=== PATIENT | male | born 1935 | race Caucasian/White ===

== ENCOUNTER 2017-12-05 11:00 | Inpatient (IN) | payer BC, OTHER ==
--- NOTE | 2017-12-05 11:28 | PDOC ---
History of Present Illness - General Chief Complaint: Chest Pain Stated Complaint: CHEST PAIN Time Seen by Provider: 12/05/17 11:23 - History of Present Illness Initial Comments: I did not see this patient This patient was seen by Dr Proctor Past History - Past Medical History Allergies/Adverse Reactions: Allergies Allergy/AdvReac Type Severity Reaction Status Date / Time No Known Allergies Allergy Verified 12/05/17 11:08 Home Medications: Ambulatory Orders Amlodipine Besylate [Norvasc -] 2.5 mg PO DAILY 12/05/17 Aspirin 81 mg PO DAILY 12/05/17 Ergocalciferol (Vitamin D2) [Vitamin D2] 50,000 unit PO DAILY 12/05/17 Folic Acid/Vit B Complex and C [Natalie-Maxine Tablet] 0.8 mg PO DAILY 12/05/17 Furosemide 20 mg PO DAILY 12/05/17 Losartan Potassium 50 mg PO DAILY 12/05/17 Metoprolol Succinate 25 mg PO DAILY 12/05/17 Pravastatin Sodium [Pravachol] 40 mg PO DAILY 12/05/17 Tamsulosin HCl 0.4 mg PO DAILY 12/05/17 Cardiac Disorders: Yes (PACEMAKER) COPD: No DVT: No Diabetes: Yes (IDDM) GI Disorders: Yes (BPH) HTN: Yes Hypercholesterolemia: Yes - Surgical History Cardiac Surgery: Yes (PACEMAKER) - Immunization History Immunization Up to Date: Yes - Suicide/Smoking/Psychosocial Hx Smoking History: Never smoked Have you smoked in the past 12 months: No Information on smoking cessation initiated: No Hx Alcohol Use: No Drug/Substance Use Hx: No Substance Use Type: None *Physical Exam - Vital Signs Last Vital Signs Temp Pulse Resp BP Pulse Ox 98.6 F 80 18 133/65 100 12/05/17 11:08 12/05/17 11:08 12/05/17 11:08 12/05/17 11:08 12/05/17 11:08 ED Treatment Course - LABORATORY CBC & Chemistry Diagram: 12/06/17 05:20 12/08/17 05:40 *DC/Admit/Observation/Transfer Diagnosis at time of Disposition: Influenza A, Presence of cardiac pacemaker, Chronic kidney disease - Discharge Dispostion Condition at time of disposition: Stable - Referrals - Patient Instructions - Post Discharge Activity
--- NOTE | 2017-12-05 11:39 | PDOC ---
History of Present Illness <Julieta Barr - Last Filed: 12/05/17 13:10> - History of Present Illness Initial Comments: 82 year male HTN and CHF (s/p pacemaker and mitral valve replacement) presenting with cough, fevers, chest pain, and nasal congestion over the past day. Patient admits to multiple sick contacts over the past few days including flu positive contacts. Describes his chest pain as an 8/10 sharp pain that presented yesterday evening and remitted after 30 minutes to an hour. The pain radiated to his right shoulder. He also had some shortness of breath and cough with a fever to 101 at home. Denies nausea, vomiting, diarrhea, constipation, productive cough, headache, weakness, or other sick symptoms. 12/05/17 14:49 <Ammy Brown - Last Filed: 12/07/17 07:35> - General Chief Complaint: Chest Pain Stated Complaint: CHEST PAIN Time Seen by Provider: 12/05/17 11:23 Past History <Julieta Barr - Last Filed: 12/05/17 13:10> - Past Medical History Cardiac Disorders: Yes (PACEMAKER) COPD: No DVT: No Diabetes: Yes (IDDM) GI Disorders: Yes (BPH) HTN: Yes Hypercholesterolemia: Yes - Surgical History Cardiac Surgery: Yes (PACEMAKER) - Immunization History Immunization Up to Date: Yes - Suicide/Smoking/Psychosocial Hx Smoking History: Never smoked Have you smoked in the past 12 months: No Information on smoking cessation initiated: No Hx Alcohol Use: No Drug/Substance Use Hx: No Substance Use Type: None <Ammy Brown - Last Filed: 12/07/17 07:35> - Past Medical History Allergies/Adverse Reactions: Allergies Allergy/AdvReac Type Severity Reaction Status Date / Time No Known Allergies Allergy Verified 12/05/17 11:08 Home Medications: Ambulatory Orders Amlodipine Besylate [Norvasc -] 2.5 mg PO DAILY 12/05/17 Aspirin 81 mg PO DAILY 12/05/17 Ergocalciferol (Vitamin D2) [Vitamin D2] 50,000 unit PO DAILY 12/05/17 Folic Acid/Vit B Complex and C [Natalie-Maxine Tablet] 0.8 mg PO DAILY 12/05/17 Furosemide 20 mg PO DAILY 12/05/17 Losartan Potassium 50 mg PO DAILY 12/05/17 Metoprolol Succinate 25 mg PO DAILY 12/05/17 Pravastatin Sodium [Pravachol] 40 mg PO DAILY 12/05/17 Tamsulosin HCl 0.4 mg PO DAILY 12/05/17 Review of Systems - Review of Systems Constitutional: Yes: Fever. No: Chills, Diaphoresis, Loss of Appetite HEENTM: No: Blurred Vision, Tearing Respiratory: Yes: Cough, Shortness of Breath Cardiac (ROS): Yes: Chest Pain. No: Edema, Irregular Heart Rate, Chest Tightness ABD/GI: No: Constipated, Diarrhea, Nausea, Vomiting : No: Dysuria, Discharge, Frequency Musculoskeletal: No: Back Pain, Joint Pain Integumentary: No: Change in Color, Flushing, Lesions, Rash Neurological: No: Headache, Numbness, Paresthesia, Tingling, Tremors, Weakness <Ammy Brown - Last Filed: 12/07/17 07:35> *Physical Exam - Vital Signs Last Vital Signs Temp Pulse Resp BP Pulse Ox 101.2 F H 70 16 102/62 98 12/05/17 12:18 12/05/17 12:10 12/05/17 12:10 12/05/17 12:10 12/05/17 12:10 <Julieta Barr - Last Filed: 12/05/17 13:10> - Vital Signs Last Vital Signs Temp Pulse Resp BP Pulse Ox 98.6 F 80 18 133/65 100 12/05/17 11:08 12/05/17 11:08 12/05/17 11:08 12/05/17 11:08 12/05/17 11:08 - Physical Exam General Appearance: Yes: Nourished, Appropriately Dressed. No: Apparent Distress HEENT: positive: EOMI, KALA, Nasal Congestion. negative: Normal ENT Inspection Neck: positive: Trachea midline, Normal Thyroid, Supple. negative: Tender, Rigid Respiratory/Chest: positive: Lungs Clear, Normal Breath Sounds. negative: Chest Tender, Respiratory Distress, Accessory Muscle Use Cardiovascular: positive: Regular Rhythm, Regular Rate Gastrointestinal/Abdominal: positive: Normal Bowel Sounds, Flat, Soft. negative : Tender Lymphatic: positive: Adenopathy (cervical adenopathy). negative: Tenderness Musculoskeletal: positive: Normal Inspection. negative: CVA Tenderness Extremity: positive: Normal Capillary Refill, Normal Inspection, Normal Range of Motion Integumentary: positive: Normal Color, Dry, Warm Neurologic: positive: train starter II-XII NML intact, Fully Oriented, Alert, Normal Mood/ Affect, Motor Strength 5/5 <Ammy Brown - Last Filed: 12/07/17 07:35> ED Treatment Course - LABORATORY CBC & Chemistry Diagram: 12/05/17 11:46 12/05/17 11:46 - ADDITIONAL ORDERS Additional order review: Laboratory Results 12/05/17 11:52 Urine Color Yellow Urine Appearance Slcloudy Urine pH 5.0 Ur Specific [place] 1.012 Urine Protein 2+ H Urine Glucose (UA) 1+ H Urine Ketones Negative Urine Blood 3+ H Urine Nitrite Negative Urine Bilirubin Negative Urine Urobilinogen Negative Ur Leukocyte Esterase Negative Urine WBC (Auto) 1 Urine RBC (Auto) 13 Hyaline Casts 1 Urine Mucus Rare 12/05/17 11:46 RBC 4.35 MCV 92.2 MCHC 34.0 RDW 13.5 MPV 9.6 Neutrophils % 70.0 Lymphocytes % 15.5 Monocytes % 12.1 H Eosinophils % 1.3 Basophils % 1.1 - RADIOLOGY Radiograph Interpretation: 12/05/17 13:11 Chest X-ray Impression: Valve replacement. Prominent mediastinum. Pacemaker. No acute chest pathology. No comparison studies. Reported By: Alan Self MD 12/05/17 6800 - Medications Given in the ED: ED Medications Discontinued Medications Generic Name Dose Route Start Last Admin Trade Name Freq PRN Reason Stop Dose Admin Acetaminophen 325 mg 12/05/17 12:28 12/05/17 12:28 Tylenol - PO 12/05/17 12:29 325 mg NOW ONE Administration Aspirin 324 mg 12/05/17 12:03 12/05/17 12:05 Asa - PO 12/05/17 12:04 324 mg ONCE ONE Administration Sodium Chloride 1,000 ml 12/05/17 11:44 12/05/17 12:04 Normal Saline - IV 12/05/17 11:45 Not Given ONCE ONE <Julieta Barr - Last Filed: 12/05/17 13:10> - LABORATORY CBC & Chemistry Diagram: 12/06/17 05:20 12/06/17 05:20 <Ammy Brown - Last Filed: 12/07/17 07:35> Medical Decision Making - Medical Decision Making 82 year old male with cardiac history (s/p pacemaker) and CKD presenting with chest paina dn uri like symptoms with positive flu contacts. Currently not having chest pain amd EKG demonstrating predominantly paced rhythm, QTc 472, QRS 104, Rate 89, with ST wave changes that are non-specific in this setting. Previous EKG was non-paced rhythm. Patient is Flu A positive with continued evidence of CKD and positive Troponin. Spoke to Dr. Charles multiple times and he is not concerned about this being an acute ischemic event. Bedside Echo demonstrated some decreased contractility. Will admit patient for further cardiac workup with Dr. Aguiar as the consult. 12/07/17 07:25 <Ammy Brown - Last Filed: 12/07/17 07:35> *DC/Admit/Observation/Transfer <Julieta Barr - Last Filed: 12/05/17 13:10> - Discharge Dispostion Admit: Yes <Ammy Brown - Last Filed: 12/07/17 07:35> Diagnosis at time of Disposition: Influenza A, Presence of cardiac pacemaker Chronic kidney disease Qualifiers: Chronic kidney disease stage: stage 3 (moderate) Qualified Code(s): N18.3 - Chronic kidney disease, stage 3 (moderate) - Discharge Dispostion Condition at time of disposition: Stable
[2017-12-05] MEDS ORDERED: SODIUM CHLORIDE 0.9% 1000 ML INFUS.BAG IV ONE (11:44)
[2017-12-05] MEDS ORDERED: ASPIRIN 81 MG CHEWABLE TABLETS PO ONE (12:03)
[2017-12-05] MEDS ORDERED: ASPIRIN 325 MG TABLET ONE (12:05)
[2017-12-05] MEDS ORDERED: ACETAMINOPHEN 325 MG TABLET (FP) ONE (12:22)
[2017-12-05] MEDS ORDERED: ACETAMINOPHEN 325 MG TABLET (FP) PO ONE (12:28)
[2017-12-05 12:37] LABS: BASO % 1.1 % (0-2.0); EOS % 1.3 % (0-4.5); HEMATOCRIT 40.1 % (35.4-49); HEMOGLOBIN 13.6 GM/dL (11.7-16.9); LYMPH % 15.5 % (8-40); MCH 31.4 pg (25.7-33.7); MEAN CELL VOLUME 92.2 fl (80-96); MEAN PLT VOLUME 9.6 fl (7.5-11.1); MONO % 12.1 % (3.8-10.2); PLATELET COUNT 113 K/MM3 (134-434); RBC 4.35 M/mm3 (4.00-5.60); RDW 13.5 % (11.9-15.9); WHITE BLOOD COUNT 7.6 K/mm3 (4.0-10.0)
[2017-12-05 12:40] LABS: URINE APPEARANCE SLCLOUDY; URINE BILIRUBIN NEGATIVE (<2.0 mg/dL); URINE BLOOD 3+ (NEGATIVE); URINE COLOR YELLOW; URINE GLUCOSE (UA) 1+ (NEGATIVE); URINE KETONE NEGATIVE (NEGATIVE); URINE LEUK ESTERASE NEGATIVE (NEGATIVE); URINE NITRITE NEGATIVE (NEGATIVE); URINE UROBILINOGEN NEGATIVE mg/dL (0.2-1.0)
[2017-12-05 12:42] LABS: URINE PROTEIN 2+ (NEGATIVE)
[2017-12-05 12:56] LABS: URINE HYALINE CAST 1 /lpf; URINE MUCUS RARE
[2017-12-05 13:13] LABS: ALBUMIN 3.9 g/dl (3.4-5.0); ANION GAP 6 (8-16); BILIRUBIN,TOTAL 0.9 mg/dL (0.2-1.0); BLOOD UREA NITROGEN 42 mg/dL (7-18); CALCIUM 8.1 mg/dL (8.5-10.1); CHLORIDE 107 mmol/L (98-107); CO2 26 mmol/L (21-32); CREATININE 2.5 mg/dL (0.7-1.3); GLUCOSE,RANDOM 230 mg/dL (74-106); POTASSIUM 4.1 mmol/L (3.5-5.1); SGOT/AST 31 U/L (15-37); SGPT/ALT 30 U/L (12-78); SODIUM 139 mmol/L (136-145); TOT PROT 7.6 g/dl (6.4-8.2)
[2017-12-05 13:16] LABS: ALK PHOS 56 U/L (45-117)
--- NOTE | 2017-12-05 13:17 | PDOC ---
Attending Attestation - HPI HPI: 12/05/17 13:22 Patient is a 82 M, with PMHx of IDDM, CKD,has pacemaker who presents with chest pain and flu-like symptoms since last night. Patient reports a fever of 103F at home, he reports coughing (scant with sputum production) and states a 2 of his family members are sick with flu-like symptoms. He states that his chest pain began last night but it is resolving today. He denies recent travel, leg swelling, rash, nausea, or vomiting. - Physicial Exam PE: 12/05/17 13:22 GENERAL: Awake, alert, and fully oriented, in no acute distress HEAD: No signs of trauma EYES: PERRLA, EOMI, sclera anicteric, conjunctiva clear ENT: Auricles normal inspection, nares patent, Moist mucosa NECK: Normal ROM, supple, no lymphadenopathy, JVD, or masses LUNGS: Breath sounds equal, clear to auscultation bilaterally. No wheezes, and no crackles HEART: Regular rate and rhythm, normal S1 and S2, no murmurs, rubs or gallops ABDOMEN: Soft, nontender, normoactive bowel sounds. No guarding, no rebound. No masses EXTREMITIES: Normal range of motion, no edema. No clubbing or cyanosis. No cords, erythema, or tenderness NEUROLOGICAL: Normal speech, gait is normal SKIN: Warm, Dry, normal turgor, no rashes or lesions noted. <Julieta Barr - Last Filed: 12/05/17 13:22> - Resident Resident Name: Ammy Brown - ED Attending Attestation I have performed the following: I have examined & evaluated the patient, The case was reviewed & discussed with the resident, I agree w/resident's findings & plan, Exceptions are as noted - Medical Decision Making 12/05/17 13:15 82 yo M h/o DM CKD HTN here with chest pain, fever and cough. chest pain resolved. differential: influenza, pna, uti, viral uri, acs. plan ekg labs cxr flu swab. EKG with changes , paced, TWI I, AVL, II III and AVF however old ekg is unpaced so no comparison. cxr unreamrakble, pacer no infiltrate. 12/05/17 14:58 pt with cxr unremarkable. sclerotic aorta, valve replacement post surgical changes. trop positive 0.115, flu positive. plan bedside echo r/o pericardial effusion, or abnoramity assoc poss myocarditis. d/w Dr Lombardo ( covering for [facility]) juve admit pt to tele. 12/05/17 17:53 focused ED ultrasound TTE indication: flu, positive trop r/o mycardial dysfunction, pericardial effusion four views obtained ( parasternal long and short, apicl and subxiphoid) no pericardial effusion noted. left atrial enlargement. mild decreased contractility, mild irregularity at septal wall. impression: no pericardial effusion, overall mild decr contractility. <Ilana Gonzalez - Last Filed: 12/05/17 17:54>
[2017-12-05] MEDS ORDERED: OSELTAMIVIR PHOSPHATE 30 MG CAPSULE PO ONE (15:53)
--- NOTE | 2017-12-05 19:17 | CON.CARD ---
Consult Consult Specialty:: Cardiology Referred by:: Chiara Tom MD Reason for Consultation:: Demand ischemia - History of Present Illness Chief Complaint: Cough History of Present Illness: Coverage for Dr. Aguiar Patient is a 82 M, with PMHx of IDDM, CKD, pacemaker presented with post- tussive chest pain and flu-like symptoms since last night. Patient reports a fever of 103F at home, he reports coughing (scant with sputum production) and states a 2 of his family members are sick with flu-like symptoms. He denies dyspnea, palpitations, near or true syncope, orthopnea, PND or LE edema. - History Source History Provided By: Patient Limitations to Obtaining History: No Limitations - Alcohol/Substance Use Hx Alcohol Use: No - Smoking History Smoking history: Never smoked Have you smoked in the past 12 months: No Home Medications - Allergies Allergies/Adverse Reactions: Allergies Allergy/AdvReac Type Severity Reaction Status Date / Time No Known Allergies Allergy Verified 12/05/17 11:08 - Home Medications Home Medications: Ambulatory Orders Amlodipine Besylate [Norvasc -] 2.5 mg PO DAILY 12/05/17 Aspirin 81 mg PO DAILY 12/05/17 Ergocalciferol (Vitamin D2) [Vitamin D2] 50,000 unit PO DAILY 12/05/17 Folic Acid/Vit B Complex and C [Natalie-Maxine Tablet] 0.8 mg PO DAILY 12/05/17 Furosemide 20 mg PO DAILY 12/05/17 Losartan Potassium 50 mg PO DAILY 12/05/17 Metoprolol Succinate 25 mg PO DAILY 12/05/17 Pravastatin Sodium [Pravachol] 40 mg PO DAILY 12/05/17 Tamsulosin HCl 0.4 mg PO DAILY 12/05/17 Review of Systems - Review of Systems Constitutional: reports: Fever Cardiovascular: reports: Chest Pain Respiratory: reports: Cough Vital Signs: Vital Signs Temperature 99.4 F 12/05/17 18:00 Pulse Rate 72 12/05/17 18:00 Respiratory Rate 25 H 12/05/17 18:00 Blood Pressure 129/52 12/05/17 18:00 O2 Sat by Pulse Oximetry (%) 98 12/05/17 16:21 Constitutional: Yes: No Distress, Calm Neck: Yes: Supple Respiratory: Yes: Regular, Diminished, On Nasal O2 Gastrointestinal: Yes: Normal Bowel Sounds, Soft, Abdomen, Obese Cardiovascular: Yes: Regular Rate and Rhythm JVD: No Carotid Bruit: No Heart Sounds: Yes: S1, S2 Murmur: Yes: Systolic Murmur, Grade 1 Edema: No - Other Data Labs, Other Data: CBC, BMP 12/05/17 11:46 12/05/17 11:46 Troponin, BNP 12/05/17 11:46 Troponin I 0.15 H Troponin, BNP 12/05/17 11:46 Troponin I 0.15 H A-V paced @ 75 Imaging - Results Chest X-ray: Report Reviewed (Pacer, NAD) Problem List - Problems (1) Influenza A Code(s): J10.1 - FLU DUE TO OTH IDENT INFLUENZA VIRUS W OTH RESP MANIFEST (2) Presence of cardiac pacemaker Code(s): Z95.0 - PRESENCE OF CARDIAC PACEMAKER (3) Demand ischemia Code(s): I24.8 - OTHER FORMS OF ACUTE ISCHEMIC HEART DISEASE (4) Chronic kidney disease Code(s): N18.9 - CHRONIC KIDNEY DISEASE, UNSPECIFIED Qualifiers: Chronic kidney disease stage: stage 3 (moderate) Qualified Code(s): N18.3 - Chronic kidney disease, stage 3 (moderate) (5) Hyperlipidemia Code(s): E78.5 - HYPERLIPIDEMIA, UNSPECIFIED Qualifiers: Hyperlipidemia type: pure hypercholesterolemia Qualified Code(s): E78.00 - Pure hypercholesterolemia, unspecified; E78.0 - Pure hypercholesterolemia (6) Hypertensive cardiomyopathy Code(s): I11.9 - HYPERTENSIVE HEART DISEASE WITHOUT HEART FAILURE; I43 - CARDIOMYOPATHY IN DISEASES CLASSIFIED ELSEWHERE Qualifiers: Heart failure presence: without heart failure Qualified Code(s): I11.9 - Hypertensive heart disease without heart failure; I43 - Cardiomyopathy in diseases classified elsewhere; I43 - Cardiomyopathy in diseases classified elsewhere; I43 - Cardiomyopathy in diseases classified elsewhere; I43 - Cardiomyopathy in diseases classified elsewhere Assessment/Plan 1. Influenza A 2. Atypical post-tussive chest discomfort 3. Demand ischemia 4. Type 2 DM 5, HTN/HCVD 6. CKD 7. Hyperlipidemia 8. Diastolic dysfunction P:1. Trend troponins to document peak 2. Complete tamiflu course, isolation 3. Echocardiogram to assess ventricular and valve fxn 4. Continue Norvasc 2.5 qd, ASA 81 qd, Losartan 50 qd, Toprol XL 25 qd, Pravachol 40 qd. Hold Lasix for now. 5. Thank you for consultative opportunity
[2017-12-05] MEDS: ATORVASTATIN CA 20 MG TABLET (FP) PO SCH (21:54)
[2017-12-06 05:49] LABS: BASO % 0.8 % (0-2.0); EOS % 1.4 % (0-4.5); HEMATOCRIT 37.9 % (35.4-49); HEMOGLOBIN 13.2 GM/dL (11.7-16.9); LYMPH % 20.7 % (8-40); MCH 32.4 pg (25.7-33.7); MCHC 34.8 g/dl (32.0-35.9); MEAN CELL VOLUME 93.1 fl (80-96); MEAN PLT VOLUME 9.9 fl (7.5-11.1); MONO % 17.3 % (3.8-10.2); NEUT % 59.8 % (42.8-82.8); PLATELET COUNT 100 K/MM3 (134-434); RBC 4.07 M/mm3 (4.00-5.60); RDW 13.7 % (11.9-15.9); WHITE BLOOD COUNT 6.6 K/mm3 (4.0-10.0)
[2017-12-06 06:12] LABS: ALBUMIN 3.6 g/dl (3.4-5.0); ANION GAP 4 (8-16); BILIRUBIN,TOTAL 0.9 mg/dL (0.2-1.0); BLOOD UREA NITROGEN 46 mg/dL (7-18); CALCIUM 7.8 mg/dL (8.5-10.1); CHLORIDE 106 mmol/L (98-107); CO2 28 mmol/L (21-32); CREATININE 2.3 mg/dL (0.7-1.3); GLUCOSE,RANDOM 201 mg/dL (74-106); POTASSIUM 4.4 mmol/L (3.5-5.1); SGOT/AST 31 U/L (15-37); SGPT/ALT 25 U/L (12-78); SODIUM 138 mmol/L (136-145)
[2017-12-06 06:15] LABS: ALK PHOS 48 U/L (45-117)
[2017-12-06] MEDS ORDERED: PT OWN MED DRAWER 7, Y5N ONE ×2 (09:37→21:06)
[2017-12-06] MEDS: metoPROLOL SUCCINATE 25 MG TAB.SR.24H (FP) PO SCH (09:52)
[2017-12-06] MEDS: ASPIRIN 81 MG CHEWABLE TABLETS PO SCH (09:53)
[2017-12-06] MEDS: LOSARTAN POTASSIUM 50 MG TABLET (FP) PO SCH (09:53)
[2017-12-06] MEDS: HEPARIN NA (PORCINE) 5,000 UNITS/ML 1ML VIAL SQ SCH ×2 (09:54→22:01)
[2017-12-06] MEDS: OSELTAMIVIR PHOSPHATE 30 MG CAPSULE PO SCH ×2 (09:54→22:01)
--- NOTE | 2017-12-06 10:44 | EKG ---
Test Reason : Blood Pressure : / mmHG Vent. Rate : 089 BPM Atrial Rate : 089 BPM P-R Int : 000 ms QRS Dur : 104 ms QT Int : 388 ms P-R-T Axes : 000 -25 223 degrees QTc Int : 472 ms SINUS RHYTHM WITH MARKED SINUS ARRHYTHMIA WITH FREQUENT ventricular-paced complexes PROLONGED QT ABNORMAL ECG WHEN COMPARED WITH ECG OF 21-JAN-2003 09:27, ELECTRONIC VENTRICULAR PACEMAKER HAS REPLACED SINUS RHYTHM Confirmed by BETH MEHTA, KRIS ([id number]) on 12/06/2017 10:43:50 AM Referred By: Confirmed By:KRIS CAMPOS MD
--- NOTE | 2017-12-06 12:23 | PN ---
Progress Note (short form) - Note Progress Note: RENAL Spoke to patient. He sees Dr Good. Will call consult. MV
--- NOTE | 2017-12-06 13:13 | CON.ID ---
Consult - History of Present Illness History of Present Illness: Asked to evaluate this 82 y.o. male with PMH of CHF s/p PPM and MV replacement, IDDM, BPH, HLD, HTN, CKD presenting with c/o of non-productive cough with associated chest pain and fever > 102 that began 1 day [employer]. He states that both his brother and his sister had similar symptoms in the past week and were started on treatment for the flu. Pt denied sore throat, h/a, abd pain/n/v/d, dysuria. In the ER noted to have fever 101.2F, currently afebrile. Nasal swab + Influenza A. States he is feeling a bit better. 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: No: Alzheimer's, CVA, Dementia, Migraine, Multiple Sclerosis, Peripheral Neuropathy, Parkinson's, Seizure, Syncope, TIA, Vertigo, Other Cardio/Vascular: Yes: CHF Pulmonary: No: Asthma, Bronchitis, Cancer, COPD, O2 Dependent, Pneumonia, Previously Intubated, Pulmonary Embolus, Pulmonary Fibrosis, Sleep Apnea, Other Gastrointestinal: No: Ascites, Cancer, Constipation, Crohn's Disease, Diverticulitis, Diverticulosis, Esophageal Varices, Gastritis, GERD, GI Bleed, Hemorrhoids, Hiatal Hernia, Inflamatory Bowel Disease, Irritable Bowel Disease, Pancreatitis, Peptic Ulcer Disease, Ulcerative Colitis, Other Hepatobiliary: No: Cirrhosis, Cholelithiasis, Cholecystitis, Choledocholithiasis , Hepatitis A, Hepatitis B, Hepatitis C, Other Renal/: Yes: Renal Failure, BPH Infectious Disease: No: AIDS, C-Diff, Herpes Zoster, HIV, MRSA, STD's, Tuberculosis, VREF, Other Psych: No: Addictions, Anxiety, Bipolar, Depression, Panic, Psychosis, Schizophrenia, Other Musculoskeletal: No: Bursitis, Chronic low back pain, Hemiparesis, Hemiplegia, Osteoarthritis, Paraplegia, Other Rheumatology: No: Fibromyalgia, Gout, Lupus, Rheumatoid Arthritis, Sarcoidosis, Vasculitis, Other ENT: No: Allergic Rhinitis, Sinusitis, Other Endocrine: Yes: Diabetes Mellitus Dermatology: No: Basal Cell, Cellulitis, Eczema, Melanoma, Psoriasis, Squamous Cell, Other - Past Surgical History Past Surgical History: Yes: Permanent Pacemaker, Valve Replacement - Alcohol/Substance Use Hx Alcohol Use: No - Smoking History Smoking history: Never smoked Have you smoked in the past 12 months: No - Social History Usual Living Arrangement: Other (with family) History of Recent Travel: No Home Medications - Allergies Allergies/Adverse Reactions: Allergies Allergy/AdvReac Type Severity Reaction Status Date / Time No Known Allergies Allergy Verified 12/05/17 11:08 - Home Medications Home Medications: Ambulatory Orders Amlodipine Besylate [Norvasc -] 2.5 mg PO DAILY 12/05/17 Aspirin 81 mg PO DAILY 12/05/17 Ergocalciferol (Vitamin D2) [Vitamin D2] 50,000 unit PO DAILY 12/05/17 Folic Acid/Vit B Complex and C [Natalie-Maxine Tablet] 0.8 mg PO DAILY 12/05/17 Furosemide 20 mg PO DAILY 12/05/17 Losartan Potassium 50 mg PO DAILY 12/05/17 Metoprolol Succinate 25 mg PO DAILY 12/05/17 Pravastatin Sodium [Pravachol] 40 mg PO DAILY 12/05/17 Tamsulosin HCl 0.4 mg PO DAILY 12/05/17 Review of Systems - Review of Systems Constitutional: reports: Chills Eyes: reports: No Symptoms HENT: reports: No Symptoms Neck: reports: No Symptoms Cardiovascular: reports: No Symptoms Respiratory: reports: Cough Gastrointestinal: reports: No Symptoms Genitourinary: reports: No Symptoms Musculoskeletal: reports: No Symptoms Integumentary: reports: No Symptoms Neurological: reports: No Symptoms Endocrine: reports: No Symptoms Physical Exam Vital Signs: Vital Signs Temperature 98 F 12/06/17 12:55 Pulse Rate 88 12/06/17 12:55 Respiratory Rate 18 12/06/17 12:55 Blood Pressure 112/60 12/06/17 12:55 O2 Sat by Pulse Oximetry (%) 96 12/06/17 09:00 Constitutional: Yes: No Distress, Calm Eyes: Yes: Conjunctiva Clear HENT: Yes: Atraumatic Neck: Yes: Supple Cardiovascular: Yes: Regular Rate and Rhythm, Murmur Respiratory: Yes: CTA Bilaterally Gastrointestinal: Yes: Normal Bowel Sounds, Soft Renal/: Yes: WNL Musculoskeletal: Yes: WNL Extremities: Yes: WNL Edema: No Integumentary: Yes: WNL Neurological: Yes: Alert, Oriented Labs: CBC, BMP 12/06/17 05:20 12/06/17 05:20 Microbiology 12/05/17 12:00 Blood - Peripheral Venous Blood Culture - Preliminary NO GROWTH OBTAINED AFTER 24 HOURS, INCUBATION TO CONTINUE FOR 4 DAYS. 12/05/17 11:46 Blood - Peripheral Venous Blood Culture - Preliminary NO GROWTH OBTAINED AFTER 24 HOURS, INCUBATION TO CONTINUE FOR 4 DAYS. 12/05/17 11:46 Urine - Urine Clean Catch Urine Culture - Final NO GROWTH OBTAINED 12/05/17 11:46 Nasopharyngeal Swab Influenza Types A,B Antigen (ALIS) - Final 12/05/17 11:46 Nasopharyngeal Swab - Final Imaging - Results Chest X-ray: Report Reviewed (no acute infiltrates) Problem List - Problems (1) Chronic kidney disease Code(s): N18.9 - CHRONIC KIDNEY DISEASE, UNSPECIFIED Qualifiers: Chronic kidney disease stage: stage 3 (moderate) Qualified Code(s): N18.3 - Chronic kidney disease, stage 3 (moderate) (2) Hyperlipidemia Code(s): E78.5 - HYPERLIPIDEMIA, UNSPECIFIED Qualifiers: Hyperlipidemia type: pure hypercholesterolemia Qualified Code(s): E78.00 - Pure hypercholesterolemia, unspecified; E78.0 - Pure hypercholesterolemia (3) Hypertensive cardiomyopathy Code(s): I11.9 - HYPERTENSIVE HEART DISEASE WITHOUT HEART FAILURE; I43 - CARDIOMYOPATHY IN DISEASES CLASSIFIED ELSEWHERE Qualifiers: Heart failure presence: without heart failure Qualified Code(s): I11.9 - Hypertensive heart disease without heart failure; I43 - Cardiomyopathy in diseases classified elsewhere; I43 - Cardiomyopathy in diseases classified elsewhere; I43 - Cardiomyopathy in diseases classified elsewhere; I43 - Cardiomyopathy in diseases classified elsewhere (4) Influenza A Code(s): J10.1 - FLU DUE TO OTH IDENT INFLUENZA VIRUS W OTH RESP MANIFEST (5) Presence of cardiac pacemaker Code(s): Z95.0 - PRESENCE OF CARDIAC PACEMAKER Assessment/Plan 82 y.o. male with PMH of CHF s/p PPM and MVR, DM, CKD, BPH presenting with c/o fever, cough, chest pain that began 2 days ago with family members currently on treatment for flu-like symptoms Influenza A CHF s/p PPM s/p Valve replacement CKD -- continue Tamiflu , on droplet precautions -- blood cultures no growth -- Cardiology evaluation noted continue monitor vitals Thank you
--- NOTE | 2017-12-06 14:21 | PN ---
Progress Note, Physician History of Present Illness: Coverage for Dr. Aguiar Defervescing with improved post-tussive chest pain, fever curve and flu-like symptoms since last night. - Current Medication List Current Medications: Active Medications Aspirin (Asa -) 81 mg PO DAILY [facility] Last Admin: 12/06/17 09:53 Dose: 81 mg Atorvastatin Calcium (Lipitor -) 20 mg PO HS [facility] Last Admin: 12/05/17 21:54 Dose: 20 mg Heparin Sodium (Porcine) (Heparin -) 5,000 unit SQ BID [facility] Last Admin: 12/06/17 09:54 Dose: 5,000 unit Losartan Potassium (Cozaar -) 50 mg PO DAILY [facility] Last Admin: 12/06/17 09:53 Dose: 50 mg Metoprolol Succinate (Toprol Xl -) 25 mg PO DAILY [facility] Last Admin: 12/06/17 09:52 Dose: 25 mg Oseltamivir Phosphate (Tamiflu -) 30 mg PO BID [facility] Stop: 12/11/17 09:59 Last Admin: 12/06/17 09:54 Dose: 30 mg - Objective Vital Signs: Vital Signs Temperature 98 F 12/06/17 12:55 Pulse Rate 88 12/06/17 12:55 Respiratory Rate 18 12/06/17 12:55 Blood Pressure 112/60 12/06/17 12:55 O2 Sat by Pulse Oximetry (%) 96 12/06/17 09:00 Constitutional: Yes: No Distress, Calm Neck: Yes: Supple Cardiovascular: Yes: Regular Rate and Rhythm Respiratory: Yes: Regular, Diminished Gastrointestinal: Yes: Normal Bowel Sounds, Soft Edema: No Labs: CBC, BMP 12/06/17 05:20 12/06/17 05:20 Problem List - Problems (1) Influenza A Code(s): J10.1 - FLU DUE TO OTH IDENT INFLUENZA VIRUS W OTH RESP MANIFEST (2) Presence of cardiac pacemaker Code(s): Z95.0 - PRESENCE OF CARDIAC PACEMAKER (3) Demand ischemia Code(s): I24.8 - OTHER FORMS OF ACUTE ISCHEMIC HEART DISEASE (4) Chronic kidney disease Code(s): N18.9 - CHRONIC KIDNEY DISEASE, UNSPECIFIED Qualifiers: Chronic kidney disease stage: stage 3 (moderate) Qualified Code(s): N18.3 - Chronic kidney disease, stage 3 (moderate) (5) Hyperlipidemia Code(s): E78.5 - HYPERLIPIDEMIA, UNSPECIFIED Qualifiers: Hyperlipidemia type: pure hypercholesterolemia Qualified Code(s): E78.00 - Pure hypercholesterolemia, unspecified; E78.0 - Pure hypercholesterolemia (6) Hypertensive cardiomyopathy Code(s): I11.9 - HYPERTENSIVE HEART DISEASE WITHOUT HEART FAILURE; I43 - CARDIOMYOPATHY IN DISEASES CLASSIFIED ELSEWHERE Qualifiers: Heart failure presence: without heart failure Qualified Code(s): I11.9 - Hypertensive heart disease without heart failure; I43 - Cardiomyopathy in diseases classified elsewhere; I43 - Cardiomyopathy in diseases classified elsewhere; I43 - Cardiomyopathy in diseases classified elsewhere; I43 - Cardiomyopathy in diseases classified elsewhere Assessment/Plan 1. Influenza A 2. Atypical post-tussive chest discomfort 3. Demand ischemia 4. Type 2 DM 5, HTN/HCVD 6. CKD 7. Hyperlipidemia 8. Diastolic dysfunction P:1. Troponins have plateaued 2. Complete tamiflu course, droplet isolation 3. Echocardiogram to assess ventricular and valve fxn 4. Continue Norvasc 2.5 qd, ASA 81 qd, Losartan 50 qd, Toprol XL 25 qd, Lipitor 20 qd. Hold Lasix for now. 5. DVT prophylaxis
[2017-12-06 14:30] VITALS: BMI 29.3
--- NOTE | 2017-12-06 14:30 | CON.NEP ---
Consult Consult Specialty:: nephrology Referred by:: sasha Reason for Consultation:: azotemia - History of Present Illness Chief Complaint: cough and fever and azotemia History of Present Illness: 82 year old admitted for flu like illness referred fo eval of azotemia was exposed to other family members who are ill with respiratory infections he had cough, fevers "101 or 103F", chest pain "8-10 /10", nasal congestion he has known h/o of chronic kidney disease denies any diarrhea or vomiting no edema s/p- ckd dm htn chf ppm mvr - History Source History Provided By: Patient, Medical Record - Past Medical History [employer]RE[employer] 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: No: Alzheimer's, CVA, Dementia, Migraine, Multiple Sclerosis, Peripheral Neuropathy, Parkinson's, Seizure, Syncope, TIA, Vertigo, Other Cardio/Vascular: Yes: CHF Pulmonary: No: Asthma, Bronchitis, Cancer, COPD, O2 Dependent, Pneumonia, Previously Intubated, Pulmonary Embolus, Pulmonary Fibrosis, Sleep Apnea, Other Gastrointestinal: No: Ascites, Cancer, Constipation, Crohn's Disease, Diverticulitis, Diverticulosis, Esophageal Varices, Gastritis, GERD, GI Bleed, Hemorrhoids, Hiatal Hernia, Inflamatory Bowel Disease, Irritable Bowel Disease, Pancreatitis, Peptic Ulcer Disease, Ulcerative Colitis, Other Hepatobiliary: No: Cirrhosis, Cholelithiasis, Cholecystitis, Choledocholithiasis , Hepatitis A, Hepatitis B, Hepatitis C, Other Renal/: Yes: Renal Failure, BPH Infectious Disease: No: AIDS, C-Diff, Herpes Zoster, HIV, MRSA, STD's, Tuberculosis, VREF, Other Psych: No: Addictions, Anxiety, Bipolar, Depression, Panic, Psychosis, Schizophrenia, Other Musculoskeletal: No: Bursitis, Chronic low back pain, Hemiparesis, Hemiplegia, Osteoarthritis, Paraplegia, Other Rheumatology: No: Fibromyalgia, Gout, Lupus, Rheumatoid Arthritis, Sarcoidosis, Vasculitis, Other ENT: No: Allergic Rhinitis, Sinusitis, Other Endocrine: Yes: Diabetes Mellitus Dermatology: No: Basal Cell, Cellulitis, Eczema, Melanoma, Psoriasis, Squamous Cell, Other - Past Surgical History Past Surgical History: Yes: Permanent Pacemaker, Valve Replacement - Alcohol/Substance Use Hx Alcohol Use: No - Smoking History Smoking history: Never smoked Have you smoked in the past 12 months: No - Social History Usual Living Arrangement: Other (with family) History of Recent Travel: No Home Medications - Allergies Allergies/Adverse Reactions: Allergies Allergy/AdvReac Type Severity Reaction Status Date / Time No Known Allergies Allergy Verified 12/05/17 11:08 - Home Medications Home Medications: Ambulatory Orders Amlodipine Besylate [Norvasc -] 2.5 mg PO DAILY 12/05/17 Aspirin 81 mg PO DAILY 12/05/17 Ergocalciferol (Vitamin D2) [Vitamin D2] 50,000 unit PO DAILY 12/05/17 Folic Acid/Vit B Complex and C [Natalie-Maxine Tablet] 0.8 mg PO DAILY 12/05/17 Furosemide 20 mg PO DAILY 12/05/17 Losartan Potassium 50 mg PO DAILY 12/05/17 Metoprolol Succinate 25 mg PO DAILY 12/05/17 Pravastatin Sodium [Pravachol] 40 mg PO DAILY 12/05/17 Tamsulosin HCl 0.4 mg PO DAILY 12/05/17 Review of Systems - Review of Systems Constitutional: reports: Fever Eyes: reports: No Symptoms HENT: reports: No Symptoms Neck: reports: No Symptoms Cardiovascular: reports: No Symptoms Respiratory: reports: No Symptoms, Cough Gastrointestinal: reports: No Symptoms Genitourinary: reports: No Symptoms Breasts: reports: No Symptoms Reported Musculoskeletal: reports: No Symptoms Integumentary: reports: No Symptoms Neurological: reports: No Symptoms Nephrology Consult - Height Height: 5 ft 3 in - Weight Weight: 165 lb 12.602 oz - BMI Body Mass Index (BMI): 29.3 - Lab Results CBC,BMP: CBC, BMP 12/06/17 05:20 12/06/17 05:20 Anion Gap: Anion Gap Anion Gap 4 (8-16) L 12/06/17 05:20 - Physical Examination Vital Signs: Vital Signs Temperature 98 F 12/06/17 12:55 Pulse Rate 88 12/06/17 12:55 Respiratory Rate 18 12/06/17 12:55 Blood Pressure 112/60 12/06/17 12:55 O2 Sat by Pulse Oximetry (%) 96 12/06/17 09:00 Constitutional: Yes: Well Nourished, No Distress, Calm Eyes: Yes: WNL, Conjunctiva Clear, EOM Intact Neck: Yes: WNL, Supple, Trachea Midline Cardiovascular: Yes: WNL, Regular Rate and Rhythm Respiratory: Yes: WNL, Regular, CTA Bilaterally Gastrointestinal: Yes: WNL, Normal Bowel Sounds Renal/: Yes: WNL Musculoskeletal: Yes: WNL Extremities: Yes: WNL Edema: No Peripheral Pulses WNL: Yes Integumentary: Yes: WNL Neurological: Yes: WNL, Alert, Oriented Psychiatric: Yes: WNL Assessment/Plan ckd with proteinuria unclear if theres an acute component no evidence w/u in this hosp may be known to dr joyce/kaoyde risk factors for kidney disease include ascvd/htn/dm/chf admitted for flu-like illness Plan- routine w/u ordered renal sono urine follow bmp
--- NOTE | 2017-12-06 17:48 | HP ---
Admitting History and Physical - Admission History of Present Illness: Pt is a 82 y/o male w/ PMH significant for HTN, HLD, CKD, BPH and ?diabetes. Pt presented to the ER bc of 1-2 day h/o URI symptoms wc included cough w/ productive greenish sputum. Pt also complained to fever to 103 although in the ER pt had a temp of 101. Pt denied any SOB or wheezing but did have chest pain wc was nonradiating and not associated w/ palpitations. In the ER pt did have slightly elevated troponin and tested positive for Influenza A. - Past Medical History Cardiovascular: Yes: CHF, HTN, Hyperlipdemia Renal/: Yes: Renal Failure, BPH Endocrine: Yes: Diabetes Mellitus - Past Surgical History Past Surgical History: Yes: Permanent Pacemaker, Valve Replacement - Smoking History Smoking history: Never smoked Have you smoked in the past 12 months: No - Alcohol/Substance Use Hx Alcohol Use: No - Social History History of Recent Travel: No Home Medications - Allergies Allergies/Adverse Reactions: Allergies Allergy/AdvReac Type Severity Reaction Status Date / Time No Known Allergies Allergy Verified 12/05/17 11:08 - Home Medications Home Medications: Ambulatory Orders Amlodipine Besylate [Norvasc -] 2.5 mg PO DAILY 12/05/17 Aspirin 81 mg PO DAILY 12/05/17 Ergocalciferol (Vitamin D2) [Vitamin D2] 50,000 unit PO DAILY 12/05/17 Folic Acid/Vit B Complex and C [Natalie-Maxine Tablet] 0.8 mg PO DAILY 12/05/17 Furosemide 20 mg PO DAILY 12/05/17 Losartan Potassium 50 mg PO DAILY 12/05/17 Metoprolol Succinate 25 mg PO DAILY 12/05/17 Pravastatin Sodium [Pravachol] 40 mg PO DAILY 12/05/17 Tamsulosin HCl 0.4 mg PO DAILY 12/05/17 Family Disease History - Family Disease History Family History: Unremarkable Review of Systems - Review of Systems Constitutional: reports: Fever, Loss of Appetite, Weakness Eyes: reports: No Symptoms HENT: reports: No Symptoms Neck: reports: No Symptoms Cardiovascular: reports: Chest Pain Respiratory: reports: Cough Gastrointestinal: reports: No Symptoms Physical Examination Vital Signs: Vital Signs Temperature 98.8 F 12/06/17 16:28 Pulse Rate 82 12/06/17 16:28 Respiratory Rate 18 12/06/17 16:28 Blood Pressure 96/54 12/06/17 16:28 O2 Sat by Pulse Oximetry (%) 96 12/06/17 09:00 Constitutional: Yes: Well Nourished HENT: Yes: WNL Neck: Yes: WNL, Supple Cardiovascular: Yes: WNL, Regular Rate and Rhythm Respiratory: Yes: WNL, Regular, CTA Bilaterally Gastrointestinal: Yes: WNL, Normal Bowel Sounds, Soft Musculoskeletal: Yes: WNL Extremities: Yes: WNL Edema: No Neurological: Yes: WNL, Alert, Oriented ...Motor Strength: WNL Labs: CBC, BMP 12/06/17 05:20 12/06/17 05:20 Problem List - Problems (1) Influenza A Assessment/Plan: Cont tamiflu Follow cultures Code(s): J10.1 - FLU DUE TO OTH IDENT INFLUENZA VIRUS W OTH RESP MANIFEST (2) Chest pain Assessment/Plan: Serial cpk/troponin Cardio consult Check echo ?Due to demand ischemia Code(s): R07.9 - CHEST PAIN, UNSPECIFIED (3) CHF (congestive heart failure) Assessment/Plan: Check echo Code(s): I50.9 - HEART FAILURE, UNSPECIFIED (4) Chronic kidney disease Assessment/Plan: Renal consult Code(s): N18.9 - CHRONIC KIDNEY DISEASE, UNSPECIFIED Qualifiers: Chronic kidney disease stage: stage 3 (moderate) Qualified Code(s): N18.3 - Chronic kidney disease, stage 3 (moderate) (5) Diabetes Assessment/Plan: Cont sliding scal w/ coverage Check HgA1c Code(s): E11.9 - TYPE 2 DIABETES MELLITUS WITHOUT COMPLICATIONS (6) HTN (hypertension) Assessment/Plan: BP stable Cont losartan/metoprolol Code(s): I10 - ESSENTIAL (PRIMARY) HYPERTENSION (7) Hyperlipidemia Assessment/Plan: Cont lipitor Code(s): E78.5 - HYPERLIPIDEMIA, UNSPECIFIED Qualifiers: Hyperlipidemia type: pure hypercholesterolemia Qualified Code(s): E78.00 - Pure hypercholesterolemia, unspecified; E78.0 - Pure hypercholesterolemia (8) Presence of cardiac pacemaker Code(s): Z95.0 - PRESENCE OF CARDIAC PACEMAKER (9) Respiratory failure Assessment/Plan: Due to influenza Code(s): J96.90 - RESPIRATORY FAILURE, UNSP, UNSP W HYPOXIA OR HYPERCAPNIA
[2017-12-06] MEDS: ATORVASTATIN CA 20 MG TABLET (FP) PO SCH (22:01)
[2017-12-06] MEDS: INSULIN SLIDING SCALE (NOVOLOG) 1 VIAL SQ SCH (22:01)
[2017-12-07] MEDS: INSULIN SLIDING SCALE (NOVOLOG) 1 VIAL SQ SCH ×4 (06:10→22:43)
[2017-12-07] MEDS: guaiFENesin/D-M SUGAR-FREE/ACLHOL-FREE 118 ML BOTTLE PO PRN ×3 (07:04→20:33)
--- NOTE | 2017-12-07 08:27 | PN ---
Progress Note, Physician Chief Complaint: + Influenza - Current Medication List Current Medications: Active Medications Aspirin (Asa -) 81 mg PO DAILY [facility] Last Admin: 12/06/17 09:53 Dose: 81 mg Atorvastatin Calcium (Lipitor -) 20 mg PO HS [facility] Last Admin: 12/06/17 22:01 Dose: 20 mg Guaifenesin (Diabetic Tussin Dm -) 5 ml PO Q6H PRN PRN Reason: COUGH/CHEST CONGESTION Last Admin: 12/07/17 07:04 Dose: 5 ml Heparin Sodium (Porcine) (Heparin -) 5,000 unit SQ BID [facility] Last Admin: 12/06/17 22:01 Dose: 5,000 unit Insulin Aspart (Novolog Vial Sliding Scale -) 1 vial SQ ACHS [facility] PRN Reason: Protocol Last Admin: 12/07/17 06:10 Dose: 4 units Losartan Potassium (Cozaar -) 50 mg PO DAILY [facility] Last Admin: 12/06/17 09:53 Dose: 50 mg Metoprolol Succinate (Toprol Xl -) 25 mg PO DAILY [facility] Last Admin: 12/06/17 09:52 Dose: 25 mg Oseltamivir Phosphate (Tamiflu -) 30 mg PO BID [facility] Stop: 12/11/17 09:59 Last Admin: 12/06/17 22:01 Dose: 30 mg - Objective Vital Signs: Vital Signs Temperature 98.8 F 12/07/17 04:00 Pulse Rate 69 12/07/17 06:00 Respiratory Rate 18 12/07/17 06:00 Blood Pressure 151/63 12/07/17 06:00 O2 Sat by Pulse Oximetry (%) 96 12/06/17 21:00 Constitutional: Yes: No Distress Cardiovascular: Yes: Regular Rate and Rhythm (paced) Respiratory: Yes: Rhonchi Gastrointestinal: Yes: Soft Edema: No Neurological: Yes: Alert Labs: CBC, BMP 12/06/17 05:20 12/06/17 05:20 Microbiology 12/05/17 12:00 Blood - Peripheral Venous Blood Culture - Preliminary NO GROWTH OBTAINED AFTER 24 HOURS, INCUBATION TO CONTINUE FOR 4 DAYS. 12/05/17 11:46 Blood - Peripheral Venous Blood Culture - Preliminary NO GROWTH OBTAINED AFTER 24 HOURS, INCUBATION TO CONTINUE FOR 4 DAYS. Laboratory Tests 12/06/17 12/06/17 12/07/17 05:20 05:20 01:40 WBC 6.6 Hgb 13.2 Plt Count 100 L Sodium 138 Potassium 4.4 BUN 46 H Creatinine 2.3 H Creatine Kinase 212 355 H Troponin I 0.15 H 0.14 H - ....Imaging EKG: Image Reviewed Assessment/Plan Assessment/Plan 1. Influenza A 2. Atypical post-tussive chest discomfort 3. Demand ischemia 4. Type 2 DM 5, HTN/HCVD 6. CKD 7. Hyperlipidemia 8. Diastolic dysfunction 1. Troponins have plateaued, likely due to infection/demand ischemia/CKD 2. Complete tamiflu course, droplet isolation 3. Echocardiogram to assess ventricular and valve fxn 4. Continue Norvasc 2.5 qd, ASA 81 qd, Losartan 50 qd, Toprol XL 25 qd, Lipitor 20 qd. Hold Lasix for now. 5. DVT prophylaxis
[2017-12-07] MEDS: LOSARTAN POTASSIUM 50 MG TABLET (FP) PO SCH (11:14)
[2017-12-07] MEDS: HEPARIN NA (PORCINE) 5,000 UNITS/ML 1ML VIAL SQ SCH ×2 (11:14→22:35)
[2017-12-07] MEDS: ASPIRIN 81 MG CHEWABLE TABLETS PO SCH (11:14)
[2017-12-07] MEDS: OSELTAMIVIR PHOSPHATE 30 MG CAPSULE PO SCH ×2 (11:15→22:35)
[2017-12-07] MEDS: metoPROLOL SUCCINATE 25 MG TAB.SR.24H (FP) PO SCH (11:15)
--- NOTE | 2017-12-07 17:53 | CONSULT ---
Consult - text type - Consultation Consultation Note: Renal Consult for CKD This is a 82 year old gentleman with PMhx of CKD Stage 4 (baseline Cr 2.1), IDDM , Hypertension who presented with complaints of chest pain, cough and subjective fever and found to have a Cr of 2.5. Pt seen and examined in tele today and he reports that he feels better. Making urine w/o any obstructive symptoms. No hematuria, dysuria. No NSAID use or recent contrast exposure. No LE swelling. PMhx: as above Allergies: NKDA Family hx: NC Social hx: No T/A/D ROS: as per HPI Vital Signs Temperature 98.8 F 12/07/17 14:00 Pulse Rate 86 12/07/17 16:00 Respiratory Rate 18 12/07/17 16:00 Blood Pressure 109/61 12/07/17 16:00 O2 Sat by Pulse Oximetry (%) 96 12/07/17 08:31 Intake & Output 12/04/17 12/05/17 12/06/17 12/07/17 23:59 23:59 23:59 23:59 Intake Total 600 240 Output Total 600 Balance 0 240 Weight 74.984 kg 75.2 kg 76.43 kg NAD awake and alert neck supple, no jVD RRR, No M/R CTA soft NT/ND No LE edema, clubbing or edema CBC, BMP 12/06/17 05:20 12/06/17 05:20 Current Medications Aspirin (Asa -) 81 mg PO DAILY [facility] Last Admin: 12/07/17 11:14 Dose: 81 mg Atorvastatin Calcium (Lipitor -) 20 mg PO HS [facility] Last Admin: 12/06/17 22:01 Dose: 20 mg Guaifenesin (Diabetic Tussin Dm -) 5 ml PO Q6H PRN PRN Reason: COUGH/CHEST CONGESTION Last Admin: 12/07/17 11:16 Dose: 5 ml Heparin Sodium (Porcine) (Heparin -) 5,000 unit SQ BID [facility] Last Admin: 12/07/17 11:14 Dose: 5,000 unit Insulin Aspart (Novolog Vial Sliding Scale -) 1 vial SQ ACHS [facility] PRN Reason: Protocol Last Admin: 12/07/17 16:35 Dose: 4 units Losartan Potassium (Cozaar -) 50 mg PO DAILY [facility] Last Admin: 12/07/17 11:14 Dose: 50 mg Metoprolol Succinate (Toprol Xl -) 25 mg PO DAILY [facility] Last Admin: 12/07/17 11:15 Dose: 25 mg Oseltamivir Phosphate (Tamiflu -) 30 mg PO BID [facility] Stop: 12/11/17 09:59 Last Admin: 12/07/17 11:15 Dose: 30 mg 82 year old gentleman with PMhx of CKD Stage 4 (baseline Cr 2.1), IDDM, Hypertension who presented with complaints of chest pain, cough and subjective fever and found to have a Cr of 2.5. #CKD Stage 4 #Chest pain r/o ACS #Influenza #Hypertension Renal function near baseline at this time oral intake as tolerated, no IVF needed Continue Losartan 50mg Daily with goal BP < 140/90 Continue empiric Tamiflu Cardiology following, Cardiac enzymes are stable Trend Renal function and electrolytes while inpatient Thank you Will follow Jerry Crabtree DO
--- NOTE | 2017-12-07 21:09 | PN ---
Progress Note, Physician History of Present Illness: still coughing breathing better since the weekend - Current Medication List Current Medications: Active Medications Aspirin (Asa -) 81 mg PO DAILY [facility] Last Admin: 12/07/17 11:14 Dose: 81 mg Atorvastatin Calcium (Lipitor -) 20 mg PO HS [facility] Last Admin: 12/06/17 22:01 Dose: 20 mg Guaifenesin (Diabetic Tussin Dm -) 5 ml PO Q6H PRN PRN Reason: COUGH/CHEST CONGESTION Last Admin: 12/07/17 20:33 Dose: 5 ml Heparin Sodium (Porcine) (Heparin -) 5,000 unit SQ BID [facility] Last Admin: 12/07/17 11:14 Dose: 5,000 unit Insulin Aspart (Novolog Vial Sliding Scale -) 1 vial SQ ACHS [facility] PRN Reason: Protocol Last Admin: 12/07/17 16:35 Dose: 4 units Losartan Potassium (Cozaar -) 50 mg PO DAILY [facility] Last Admin: 12/07/17 11:14 Dose: 50 mg Metoprolol Succinate (Toprol Xl -) 25 mg PO DAILY [facility] Last Admin: 12/07/17 11:15 Dose: 25 mg Oseltamivir Phosphate (Tamiflu -) 30 mg PO BID [facility] Stop: 12/11/17 09:59 Last Admin: 12/07/17 11:15 Dose: 30 mg - Objective Vital Signs: Vital Signs Temperature 98.4 F 12/07/17 18:00 Pulse Rate 82 12/07/17 20:00 Respiratory Rate 18 12/07/17 20:00 Blood Pressure 88/61 12/07/17 20:00 O2 Sat by Pulse Oximetry (%) 96 12/07/17 20:36 Constitutional: Yes: No Distress, Calm Cardiovascular: Yes: Regular Rate and Rhythm Respiratory: Yes: On Nasal O2, Wheezes Gastrointestinal: Yes: Normal Bowel Sounds, Soft Musculoskeletal: Yes: WNL Extremities: Yes: WNL Neurological: Yes: Alert, Oriented Psychiatric: Yes: Alert, Oriented Labs: CBC, BMP 12/06/17 05:20 12/06/17 05:20 Assessment/Plan Problem List - Problems (1) Chronic kidney disease Code(s): N18.9 - CHRONIC KIDNEY DISEASE, UNSPECIFIED Qualifiers: Chronic kidney disease stage: stage 3 (moderate) Qualified Code(s): N18.3 - Chronic kidney disease, stage 3 (moderate) (2) Hyperlipidemia Code(s): E78.5 - HYPERLIPIDEMIA, UNSPECIFIED Qualifiers: Hyperlipidemia type: pure hypercholesterolemia Qualified Code(s): E78.00 - Pure hypercholesterolemia, unspecified; E78.0 - Pure hypercholesterolemia (3) Hypertensive cardiomyopathy Code(s): I11.9 - HYPERTENSIVE HEART DISEASE WITHOUT HEART FAILURE; I43 - CARDIOMYOPATHY IN DISEASES CLASSIFIED ELSEWHERE Qualifiers: Heart failure presence: without heart failure Qualified Code(s): I11.9 - Hypertensive heart disease without heart failure; I43 - Cardiomyopathy in diseases classified elsewhere; I43 - Cardiomyopathy in diseases classified elsewhere; I43 - Cardiomyopathy in diseases classified elsewhere; I43 - Cardiomyopathy in diseases classified elsewhere (4) Influenza A Code(s): J10.1 - FLU DUE TO OTH IDENT INFLUENZA VIRUS W OTH RESP MANIFEST (5) Presence of cardiac pacemaker Code(s): Z95.0 - PRESENCE OF CARDIAC PACEMAKER plan continue tamiflu resp support rest continue current mgmt monitor for fevers
--- NOTE | 2017-12-07 22:18 | PN ---
Progress Note, Physician History of Present Illness: No new complaints However pt still has a cough - Current Medication List Current Medications: Active Medications Aspirin (Asa -) 81 mg PO DAILY [facility] Last Admin: 12/07/17 11:14 Dose: 81 mg Atorvastatin Calcium (Lipitor -) 20 mg PO HS [facility] Last Admin: 12/06/17 22:01 Dose: 20 mg Guaifenesin (Diabetic Tussin Dm -) 5 ml PO Q6H PRN PRN Reason: COUGH/CHEST CONGESTION Last Admin: 12/07/17 20:33 Dose: 5 ml Heparin Sodium (Porcine) (Heparin -) 5,000 unit SQ BID [facility] Last Admin: 12/07/17 11:14 Dose: 5,000 unit Insulin Aspart (Novolog Vial Sliding Scale -) 1 vial SQ ACHS [facility] PRN Reason: Protocol Last Admin: 12/07/17 16:35 Dose: 4 units Losartan Potassium (Cozaar -) 50 mg PO DAILY [facility] Last Admin: 12/07/17 11:14 Dose: 50 mg Metoprolol Succinate (Toprol Xl -) 25 mg PO DAILY [facility] Last Admin: 12/07/17 11:15 Dose: 25 mg Oseltamivir Phosphate (Tamiflu -) 30 mg PO BID [facility] Stop: 12/11/17 09:59 Last Admin: 12/07/17 11:15 Dose: 30 mg - Objective Vital Signs: Vital Signs Temperature 98.4 F 12/07/17 18:00 Pulse Rate 82 12/07/17 20:00 Respiratory Rate 18 12/07/17 20:00 Blood Pressure 88/61 12/07/17 20:00 O2 Sat by Pulse Oximetry (%) 96 12/07/17 20:36 HENT: Yes: WNL Neck: Yes: WNL, Supple Cardiovascular: Yes: WNL, Regular Rate and Rhythm Respiratory: Yes: Rhonchi Gastrointestinal: Yes: WNL, Normal Bowel Sounds, Soft Labs: CBC, BMP 12/06/17 05:20 12/06/17 05:20 Problem List - Problems (1) Influenza A Assessment/Plan: Cont tamiflu DC planning for am Code(s): J10.1 - FLU DUE TO OTH IDENT INFLUENZA VIRUS W OTH RESP MANIFEST (2) Respiratory failure Assessment/Plan: Due to influenza Resolved Code(s): J96.90 - RESPIRATORY FAILURE, UNSP, UNSP W HYPOXIA OR HYPERCAPNIA (3) HTN (hypertension) Assessment/Plan: BP stable Cont losartan/metoprolol Code(s): I10 - ESSENTIAL (PRIMARY) HYPERTENSION (4) Diabetes Assessment/Plan: Cont sliding scal w/ coverage Check HgA1c Code(s): E11.9 - TYPE 2 DIABETES MELLITUS WITHOUT COMPLICATIONS (5) Chest pain Assessment/Plan: Due to demand ischemia Code(s): R07.9 - CHEST PAIN, UNSPECIFIED (6) CHF (congestive heart failure) Assessment/Plan: no sign of overload Code(s): I50.9 - HEART FAILURE, UNSPECIFIED (7) Chronic kidney disease Code(s): N18.9 - CHRONIC KIDNEY DISEASE, UNSPECIFIED Qualifiers: Chronic kidney disease stage: stage 3 (moderate) Qualified Code(s): N18.3 - Chronic kidney disease, stage 3 (moderate) (8) Hyperlipidemia Assessment/Plan: Cont lipitor Code(s): E78.5 - HYPERLIPIDEMIA, UNSPECIFIED Qualifiers: Hyperlipidemia type: pure hypercholesterolemia Qualified Code(s): E78.00 - Pure hypercholesterolemia, unspecified; E78.0 - Pure hypercholesterolemia
[2017-12-07] MEDS: ATORVASTATIN CA 20 MG TABLET (FP) PO SCH (22:35)
[2017-12-08] MEDS: INSULIN SLIDING SCALE (NOVOLOG) 1 VIAL SQ SCH ×4 (06:48→22:51)
[2017-12-08 07:16] LABS: ALBUMIN 3.6 g/dl (3.4-5.0); ALK PHOS 49 U/L (45-117); ANION GAP 8 (8-16); BILIRUBIN,TOTAL 0.8 mg/dL (0.2-1.0); BLOOD UREA NITROGEN 66 mg/dL (7-18); CALCIUM 7.7 mg/dL (8.5-10.1); CHLORIDE 104 mmol/L (98-107); CO2 24 mmol/L (21-32); CREATININE 2.7 mg/dL (0.7-1.3); GLUCOSE,RANDOM 176 mg/dL (74-106); POTASSIUM 4.1 mmol/L (3.5-5.1); SGOT/AST 37 U/L (15-37); SGPT/ALT 29 U/L (12-78); SODIUM 136 mmol/L (136-145)
--- NOTE | 2017-12-08 08:18 | PN ---
Progress Note, Physician Chief Complaint: no distress TELE: intermittent pacing Echo nl EF, nl fxing aortic valve prosthesis (TAVR) - Current Medication List Current Medications: Active Medications Aspirin (Asa -) 81 mg PO DAILY [facility] Last Admin: 12/07/17 11:14 Dose: 81 mg Atorvastatin Calcium (Lipitor -) 20 mg PO HS [facility] Last Admin: 12/07/17 22:35 Dose: 20 mg Guaifenesin (Diabetic Tussin Dm -) 5 ml PO Q6H PRN PRN Reason: COUGH/CHEST CONGESTION Last Admin: 12/07/17 20:33 Dose: 5 ml Heparin Sodium (Porcine) (Heparin -) 5,000 unit SQ BID [facility] Last Admin: 12/07/17 22:35 Dose: 5,000 unit Insulin Aspart (Novolog Vial Sliding Scale -) 1 vial SQ ACHS [facility] PRN Reason: Protocol Last Admin: 12/08/17 06:48 Dose: 2 units Losartan Potassium (Cozaar -) 50 mg PO DAILY [facility] Last Admin: 12/07/17 11:14 Dose: 50 mg Metoprolol Succinate (Toprol Xl -) 25 mg PO DAILY [facility] Last Admin: 12/07/17 11:15 Dose: 25 mg Oseltamivir Phosphate (Tamiflu -) 30 mg PO BID [facility] Stop: 12/11/17 09:59 Last Admin: 12/07/17 22:35 Dose: 30 mg - Objective Vital Signs: Vital Signs Temperature 98.6 F 12/08/17 05:49 Pulse Rate 64 12/08/17 05:49 Respiratory Rate 22 12/08/17 05:49 Blood Pressure 134/56 12/08/17 05:49 O2 Sat by Pulse Oximetry (%) 96 12/07/17 20:36 Constitutional: Yes: No Distress Cardiovascular: Yes: Regular Rate and Rhythm Respiratory: Yes: CTA Bilaterally Gastrointestinal: Yes: Soft Edema: No Neurological: Yes: Alert, Oriented Labs: CBC, BMP 12/06/17 05:20 Microbiology 12/05/17 12:00 Blood - Peripheral Venous Blood Culture - Preliminary NO GROWTH OBTAINED AFTER 48 HOURS, INCUBATION TO CONTINUE FOR 3 DAYS. 12/05/17 11:46 Blood - Peripheral Venous Blood Culture - Preliminary NO GROWTH OBTAINED AFTER 48 HOURS, INCUBATION TO CONTINUE FOR 3 DAYS. - ....Imaging EKG: Image Reviewed Assessment/Plan Assessment/Plan 1. Influenza A 2. Atypical post-tussive chest discomfort 3. Demand ischemia 4. Type 2 DM 5, HTN/HCVD 6. CKD 7. Hyperlipidemia 8. Diastolic dysfunction 9. H/o TAVR 1. Troponins have plateaued, likely due to infection/demand ischemia/CKD 2. Complete tamiflu course, droplet isolation 3. Echocardiogram w/ nl EF and nl fxing aortic valve prosthesis (s/p TAVR) 4. Continue Norvasc 2.5 qd, ASA 81 qd, Losartan 50 qd, Toprol XL 25 qd, Lipitor 20 qd. Hold Lasix for now. 5. DVT prophylaxis
[2017-12-08] MEDS ORDERED: PT OWN MED DRAWER 7, Y5N ONE ×4 (10:13→21:53)
[2017-12-08] MEDS: metoPROLOL SUCCINATE 25 MG TAB.SR.24H (FP) PO SCH (10:18)
[2017-12-08] MEDS: ASPIRIN 81 MG CHEWABLE TABLETS PO SCH (10:18)
[2017-12-08] MEDS: LOSARTAN POTASSIUM 50 MG TABLET (FP) PO SCH (10:18)
[2017-12-08] MEDS: OSELTAMIVIR PHOSPHATE 30 MG CAPSULE PO SCH ×2 (10:19→22:48)
[2017-12-08] MEDS: HEPARIN NA (PORCINE) 5,000 UNITS/ML 1ML VIAL SQ SCH ×2 (10:19→22:47)
[2017-12-08] MEDS: guaiFENesin/D-M SUGAR-FREE/ACLHOL-FREE 118 ML BOTTLE PO PRN ×2 (10:25→20:03)
--- NOTE | 2017-12-08 16:12 | PN ---
Progress Note, Physician History of Present Illness: doing well breathing better improving - Current Medication List Current Medications: Active Medications Aspirin (Asa -) 81 mg PO DAILY [facility] Last Admin: 12/08/17 10:18 Dose: 81 mg Atorvastatin Calcium (Lipitor -) 20 mg PO HS [facility] Last Admin: 12/07/17 22:35 Dose: 20 mg Guaifenesin (Diabetic Tussin Dm -) 5 ml PO Q6H PRN PRN Reason: COUGH/CHEST CONGESTION Last Admin: 12/08/17 10:25 Dose: 5 ml Heparin Sodium (Porcine) (Heparin -) 5,000 unit SQ BID [facility] Last Admin: 12/08/17 10:19 Dose: 5,000 unit Insulin Aspart (Novolog Vial Sliding Scale -) 1 vial SQ ACHS [facility] PRN Reason: Protocol Last Admin: 12/08/17 10:23 Dose: 6 units Metoprolol Succinate (Toprol Xl -) 25 mg PO DAILY [facility] Last Admin: 12/08/17 10:18 Dose: 25 mg Oseltamivir Phosphate (Tamiflu -) 30 mg PO BID [facility] Stop: 12/11/17 09:59 Last Admin: 12/08/17 10:19 Dose: 30 mg - Objective Vital Signs: Vital Signs Temperature 98.4 F 12/08/17 14:00 Pulse Rate 68 12/08/17 14:00 Respiratory Rate 22 12/08/17 14:00 Blood Pressure 100/57 12/08/17 14:00 O2 Sat by Pulse Oximetry (%) 96 12/08/17 09:00 Constitutional: Yes: No Distress, Calm Cardiovascular: Yes: Regular Rate and Rhythm Respiratory: Yes: Regular, Wheezes, Other Gastrointestinal: Yes: Normal Bowel Sounds, Soft Musculoskeletal: Yes: WNL Extremities: Yes: WNL Neurological: Yes: Alert, Oriented Psychiatric: Yes: Alert, Oriented Labs: CBC, BMP 12/06/17 05:20 12/08/17 05:40 Assessment/Plan Problem List - Problems (1) Chronic kidney disease Code(s): N18.9 - CHRONIC KIDNEY DISEASE, UNSPECIFIED Qualifiers: Chronic kidney disease stage: stage 3 (moderate) Qualified Code(s): N18.3 - Chronic kidney disease, stage 3 (moderate) (2) Hyperlipidemia Code(s): E78.5 - HYPERLIPIDEMIA, UNSPECIFIED Qualifiers: Hyperlipidemia type: pure hypercholesterolemia Qualified Code(s): E78.00 - Pure hypercholesterolemia, unspecified; E78.0 - Pure hypercholesterolemia (3) Hypertensive cardiomyopathy Code(s): I11.9 - HYPERTENSIVE HEART DISEASE WITHOUT HEART FAILURE; I43 - CARDIOMYOPATHY IN DISEASES CLASSIFIED ELSEWHERE Qualifiers: Heart failure presence: without heart failure Qualified Code(s): I11.9 - Hypertensive heart disease without heart failure; I43 - Cardiomyopathy in diseases classified elsewhere; I43 - Cardiomyopathy in diseases classified elsewhere; I43 - Cardiomyopathy in diseases classified elsewhere; I43 - Cardiomyopathy in diseases classified elsewhere (4) Influenza A Code(s): J10.1 - FLU DUE TO OTH IDENT INFLUENZA VIRUS W OTH RESP MANIFEST (5) Presence of cardiac pacemaker Code(s): Z95.0 - PRESENCE OF CARDIAC PACEMAKER plan continue tamiflu resp support rest continue current mgmt improving
[2017-12-08] MEDS: ATORVASTATIN CA 20 MG TABLET (FP) PO SCH (22:47)
--- NOTE | 2017-12-08 23:24 | PN ---
Progress Note, Physician History of Present Illness: No new complaints - Current Medication List Current Medications: Active Medications Aspirin (Asa -) 81 mg PO DAILY [facility] Last Admin: 12/08/17 10:18 Dose: 81 mg Atorvastatin Calcium (Lipitor -) 20 mg PO HS [facility] Last Admin: 12/08/17 22:47 Dose: 20 mg Guaifenesin (Diabetic Tussin Dm -) 5 ml PO Q6H PRN PRN Reason: COUGH/CHEST CONGESTION Last Admin: 12/08/17 20:03 Dose: 5 ml Heparin Sodium (Porcine) (Heparin -) 5,000 unit SQ BID [facility] Last Admin: 12/08/17 22:47 Dose: 5,000 unit Insulin Aspart (Novolog Vial Sliding Scale -) 1 vial SQ ACHS [facility] PRN Reason: Protocol Last Admin: 12/08/17 22:51 Dose: 6 units Metoprolol Succinate (Toprol Xl -) 25 mg PO DAILY [facility] Last Admin: 12/08/17 10:18 Dose: 25 mg Oseltamivir Phosphate (Tamiflu -) 30 mg PO BID [facility] Stop: 12/11/17 09:59 Last Admin: 12/08/17 22:48 Dose: 30 mg - Objective Vital Signs: Vital Signs Temperature 98.4 F 12/08/17 20:00 Pulse Rate 52 L 12/08/17 20:00 Respiratory Rate 16 12/08/17 20:49 Blood Pressure 125/60 12/08/17 20:00 O2 Sat by Pulse Oximetry (%) 96 12/08/17 20:49 HENT: Yes: WNL Neck: Yes: WNL, Supple Cardiovascular: Yes: WNL, Regular Rate and Rhythm Respiratory: Yes: Diminished Gastrointestinal: Yes: WNL, Normal Bowel Sounds, Soft Labs: CBC, BMP 12/06/17 05:20 12/08/17 05:40 Problem List - Problems (1) Influenza A Assessment/Plan: Cont tamiflu Follow cultures DC planning for am Code(s): J10.1 - FLU DUE TO OTH IDENT INFLUENZA VIRUS W OTH RESP MANIFEST (2) Chest pain Assessment/Plan: ?Due to demand ischemia Code(s): R07.9 - CHEST PAIN, UNSPECIFIED (3) CHF (congestive heart failure) Assessment/Plan: Pt is euvolemic Code(s): I50.9 - HEART FAILURE, UNSPECIFIED (4) Chronic kidney disease Code(s): N18.9 - CHRONIC KIDNEY DISEASE, UNSPECIFIED Qualifiers: Chronic kidney disease stage: stage 3 (moderate) Qualified Code(s): N18.3 - Chronic kidney disease, stage 3 (moderate) (5) Diabetes Assessment/Plan: Cont sliding scal w/ coverage HgA1c is 8.8 Start levemir Code(s): E11.9 - TYPE 2 DIABETES MELLITUS WITHOUT COMPLICATIONS (6) HTN (hypertension) Code(s): I10 - ESSENTIAL (PRIMARY) HYPERTENSION (7) Hyperlipidemia Code(s): E78.5 - HYPERLIPIDEMIA, UNSPECIFIED Qualifiers: Hyperlipidemia type: pure hypercholesterolemia Qualified Code(s): E78.00 - Pure hypercholesterolemia, unspecified; E78.0 - Pure hypercholesterolemia (8) Presence of cardiac pacemaker Code(s): Z95.0 - PRESENCE OF CARDIAC PACEMAKER (9) Respiratory failure Code(s): J96.90 - RESPIRATORY FAILURE, UNSP, UNSP W HYPOXIA OR HYPERCAPNIA
[2017-12-08] MEDS ORDERED: INSULIN (LEVEMIR) 100 UNITS/ML UNITS SQ SCH (23:45)
[2017-12-09] MEDS: INSULIN SLIDING SCALE (NOVOLOG) 1 VIAL SQ SCH ×2 (07:00→11:36)
--- NOTE | 2017-12-09 08:10 | PN ---
Progress Note, Physician Chief Complaint: no CP or SOB TELE: paced - Current Medication List Current Medications: Active Medications Aspirin (Asa -) 81 mg PO DAILY [facility] Last Admin: 12/08/17 10:18 Dose: 81 mg Atorvastatin Calcium (Lipitor -) 20 mg PO HS [facility] Last Admin: 12/08/17 22:47 Dose: 20 mg Guaifenesin (Diabetic Tussin Dm -) 5 ml PO Q6H PRN PRN Reason: COUGH/CHEST CONGESTION Last Admin: 12/08/17 20:03 Dose: 5 ml Heparin Sodium (Porcine) (Heparin -) 5,000 unit SQ BID [facility] Last Admin: 12/08/17 22:47 Dose: 5,000 unit Insulin Aspart (Novolog Vial Sliding Scale -) 1 vial SQ ACHS [facility] PRN Reason: Protocol Last Admin: 12/09/17 07:00 Dose: Not Given Insulin Detemir (Levemir Vial) 10 units SQ HS [facility] Last Admin: 12/09/17 00:12 Dose: 10 units Metoprolol Succinate (Toprol Xl -) 25 mg PO DAILY [facility] Last Admin: 12/08/17 10:18 Dose: 25 mg Oseltamivir Phosphate (Tamiflu -) 30 mg PO BID [facility] Stop: 12/11/17 09:59 Last Admin: 12/08/17 22:48 Dose: 30 mg - Objective Vital Signs: Vital Signs Temperature 98.4 F 12/08/17 20:00 Pulse Rate 51 L 12/09/17 02:00 Respiratory Rate 20 12/09/17 02:00 Blood Pressure 115/52 12/09/17 02:00 O2 Sat by Pulse Oximetry (%) 96 12/08/17 20:49 Constitutional: Yes: No Distress Cardiovascular: Yes: Regular Rate and Rhythm Respiratory: Yes: Rhonchi Gastrointestinal: Yes: Soft Edema: No Neurological: Yes: Alert Labs: CBC, BMP 12/06/17 05:20 12/08/17 05:40 - ....Imaging EKG: Image Reviewed Assessment/Plan Assessment/Plan 1. Influenza A 2. Atypical post-tussive chest discomfort 3. Demand ischemia 4. Type 2 DM 5, HTN/HCVD 6. CKD 7. Hyperlipidemia 8. Diastolic dysfunction 9. H/o TAVR 1. Troponins have plateaued, likely due to infection/demand ischemia/CKD 2. Complete tamiflu course, droplet isolation 3. Echocardiogram w/ nl EF and nl fxing aortic valve prosthesis (s/p TAVR) 4. Continue Norvasc 2.5 qd, ASA 81 qd, Losartan 50 qd, Toprol XL 25 qd, Lipitor 20 qd. Hold Lasix for now. 5. DVT prophylaxis
--- NOTE | 2017-12-09 10:36 | EKG ---
Test Reason : Blood Pressure : / mmHG Vent. Rate : 060 BPM Atrial Rate : 060 BPM P-R Int : 228 ms QRS Dur : 160 ms QT Int : 478 ms P-R-T Axes : -09 270 078 degrees QTc Int : 478 ms Atrial-sensed ventricular-paced rhythm with prolonged AV conduction WITH OCCASIONAL PREMATURE VENTRICULAR COMPLEXES ABNORMAL ECG WHEN COMPARED WITH ECG OF 05-DEC-2017 11:15, PREMATURE VENTRICULAR COMPLEXES ARE NOW PRESENT VENT. RATE HAS DECREASED BY 29 BPM Confirmed by KYLEE MEHTA, JESSICA ([id number]) on 12/09/2017 10:36:23 AM Referred By: Confirmed By:JESSICA PICHARDO MD
[2017-12-09] MEDS ORDERED: PT OWN MED DRAWER 7, Y5N ONE (11:02)
[2017-12-09] MEDS: ASPIRIN 81 MG CHEWABLE TABLETS PO SCH (11:06)
[2017-12-09] MEDS: OSELTAMIVIR PHOSPHATE 30 MG CAPSULE PO SCH (11:07)
[2017-12-09] MEDS: metoPROLOL SUCCINATE 25 MG TAB.SR.24H (FP) PO SCH (11:07)
[2017-12-09] MEDS: HEPARIN NA (PORCINE) 5,000 UNITS/ML 1ML VIAL SQ SCH (11:07)
[2017-12-09 13:38] VITALS: BP 151/66; PULSE 54; TEMP 98.6
--- NOTE | 2017-12-09 13:58 | PN ---
Progress Note, Physician History of Present Illness: doing well breathing better brother in room still with cough - Current Medication List Current Medications: Active Medications Aspirin (Asa -) 81 mg PO DAILY [facility] Last Admin: 12/09/17 11:06 Dose: 81 mg Atorvastatin Calcium (Lipitor -) 20 mg PO HS [facility] Last Admin: 12/08/17 22:47 Dose: 20 mg Guaifenesin (Diabetic Tussin Dm -) 5 ml PO Q6H PRN PRN Reason: COUGH/CHEST CONGESTION Last Admin: 12/08/17 20:03 Dose: 5 ml Heparin Sodium (Porcine) (Heparin -) 5,000 unit SQ BID [facility] Last Admin: 12/09/17 11:07 Dose: 5,000 unit Insulin Aspart (Novolog Vial Sliding Scale -) 1 vial SQ ACHS [facility] PRN Reason: Protocol Last Admin: 12/09/17 11:36 Dose: 12 units Insulin Detemir (Levemir Vial) 10 units SQ HS [facility] Last Admin: 12/09/17 00:12 Dose: 10 units Metoprolol Succinate (Toprol Xl -) 25 mg PO DAILY [facility] Last Admin: 12/09/17 11:07 Dose: 25 mg Oseltamivir Phosphate (Tamiflu -) 30 mg PO BID [facility] Stop: 12/11/17 09:59 Last Admin: 12/09/17 11:07 Dose: 30 mg - Objective Vital Signs: Vital Signs Temperature 98.6 F 12/09/17 12:00 Pulse Rate 54 L 12/09/17 12:00 Respiratory Rate 20 12/09/17 12:00 Blood Pressure 151/66 12/09/17 12:00 O2 Sat by Pulse Oximetry (%) 96 12/09/17 09:00 Constitutional: Yes: No Distress, Calm Cardiovascular: Yes: Regular Rate and Rhythm Respiratory: Yes: Regular, CTA Bilaterally Gastrointestinal: Yes: Normal Bowel Sounds, Soft Musculoskeletal: Yes: WNL Extremities: Yes: WNL Neurological: Yes: Alert, Oriented Psychiatric: Yes: Alert, Oriented Labs: CBC, BMP 12/06/17 05:20 12/08/17 05:40 Assessment/Plan Problem List - Problems (1) Chronic kidney disease Code(s): N18.9 - CHRONIC KIDNEY DISEASE, UNSPECIFIED Qualifiers: Chronic kidney disease stage: stage 3 (moderate) Qualified Code(s): N18.3 - Chronic kidney disease, stage 3 (moderate) (2) Hyperlipidemia Code(s): E78.5 - HYPERLIPIDEMIA, UNSPECIFIED Qualifiers: Hyperlipidemia type: pure hypercholesterolemia Qualified Code(s): E78.00 - Pure hypercholesterolemia, unspecified; E78.0 - Pure hypercholesterolemia (3) Hypertensive cardiomyopathy Code(s): I11.9 - HYPERTENSIVE HEART DISEASE WITHOUT HEART FAILURE; I43 - CARDIOMYOPATHY IN DISEASES CLASSIFIED ELSEWHERE Qualifiers: Heart failure presence: without heart failure Qualified Code(s): I11.9 - Hypertensive heart disease without heart failure; I43 - Cardiomyopathy in diseases classified elsewhere; I43 - Cardiomyopathy in diseases classified elsewhere; I43 - Cardiomyopathy in diseases classified elsewhere; I43 - Cardiomyopathy in diseases classified elsewhere (4) Influenza A Code(s): J10.1 - FLU DUE TO OTH IDENT INFLUENZA VIRUS W OTH RESP MANIFEST (5) Presence of cardiac pacemaker Code(s): Z95.0 - PRESENCE OF CARDIAC PACEMAKER plan last day of tamiflu rest continue supportive patient doing well
[2017-12-09 15:50] LABS: ANION GAP 5 (8-16); BLOOD UREA NITROGEN 59 mg/dL (7-18); CALCIUM 7.6 mg/dL (8.5-10.1); CHLORIDE 105 mmol/L (98-107); CO2 27 mmol/L (21-32); CREATININE 2.4 mg/dL (0.7-1.3); GLUCOSE,RANDOM 285 mg/dL (74-106); POTASSIUM 4.6 mmol/L (3.5-5.1); SODIUM 137 mmol/L (136-145)
--- NOTE | 2017-12-10 03:23 | DS ---
Physical Examination Vital Signs: Vital Signs Temperature 98.6 F 12/09/17 14:00 Pulse Rate 54 L 12/09/17 14:00 Respiratory Rate 20 12/09/17 14:00 Blood Pressure 151/66 12/09/17 14:00 O2 Sat by Pulse Oximetry (%) 96 12/09/17 09:00 Constitutional: Yes: No Distress Neck: Yes: Trachea Midline Cardiovascular: Yes: Regular Rate and Rhythm Respiratory: Yes: Regular, CTA Bilaterally Labs: CBC, BMP 12/06/17 05:20 12/09/17 14:30 Discharge Summary Reason For Visit: CHEST PAIN, ELEVATED TROPONIN INFLUENZA (1) Influenza A (2) Chest pain (3) CHF (congestive heart failure) (4) Chronic kidney disease (5) Diabetes S (6) HTN (hypertension) (7) Hyperlipidemia (8) Presence of cardiac pacemaker (9) Respiratory failure Hospital Course: Pt is a 82 y/o male w/ PMH significant for HTN, HLD, CKD, BPH and diabetes. Pt presented to the ER bc of 1-2 day h/o URI symptoms wc included cough w/ productive greenish sputum. Pt also complained to fever to 103 although in the ER pt had a temp of 101. In the ER pt did have slightly elevated troponin and tested positive for Influenza A. He was treated for Influenza and symptomatic control. Over the course of stay he improved significantly and was d/c'd to outpt f/u. Condition: Good - Instructions Diet, Activity, Other Instructions: 2200 calorie diabetic diet Renal diet and [address] diet See Dr Martinez in 1 week [phone] Referrals: Sebastian Martinez [Primary Care Provider] - Disposition: HOME - Home Medications Comprehensive Discharge Medication List: Ambulatory Orders Amlodipine Besylate [Norvasc -] 2.5 mg PO DAILY 12/05/17 Aspirin 81 mg PO DAILY 12/05/17 Ergocalciferol (Vitamin D2) [Vitamin D2] 50,000 unit PO DAILY 12/05/17 Folic Acid/Vit B Complex and C [Natalie-Maxine Tablet] 0.8 mg PO DAILY 12/05/17 Furosemide 20 mg PO DAILY 12/05/17 Losartan Potassium 50 mg PO DAILY 12/05/17 Metoprolol Succinate 25 mg PO DAILY 12/05/17 Pravastatin Sodium [Pravachol] 40 mg PO DAILY 12/05/17 Tamsulosin HCl 0.4 mg PO DAILY 12/05/17 Aspirin [ASA -] 81 mg PO DAILY tab.chew 12/09/17 Atorvastatin Ca [Lipitor] 20 mg PO HS #30 tablet 12/09/17 Insulin Detemir [Levemir Flextouch] 10 unit SQ DAILY #1 insuln.pen 12/09/17 Losartan Potassium [Cozaar -] 50 mg PO DAILY tablet 12/09/17 Metoprolol Succinate [Toprol XL -] 25 mg PO DAILY tab.sr.24h 12/09/17
== END 2017-12-09 15:52 | disposition home or self-care (01) | DRG 193 ==
LOC: JER 11:00 → JERBED 15:18 → J2W 18:15 → OBSVTOIN 12-06 02:23
PROVIDERS: ADMIT Internal Medicine; ATTEND Internal Medicine
DX: J09.X2 Influenza due to identified novel influenza A virus with other respiratory manifestations (principal); J96.90 Respiratory failure, unspecified, unspecified whether with hypoxia or hypercapnia; I13.0 Hypertensive heart and chronic kidney disease with heart failure and stage 1 through stage 4 chronic kidney disease, or unspecified chronic kidney disease; I24.8 Other forms of acute ischemic heart disease; I43 Cardiomyopathy in diseases classified elsewhere; R07.9 Chest pain, unspecified; E11.22 Type 2 diabetes mellitus with diabetic chronic kidney disease; I50.9 Heart failure, unspecified; E78.5 Hyperlipidemia, unspecified; Z95.0 Presence of cardiac pacemaker; N40.0 Benign prostatic hyperplasia without lower urinary tract symptoms; N18.3 Chronic kidney disease, stage 3 (moderate)
CPT/HCPCS: 36415; 71046-TC-FY; 76775-TC; 76856-TC; 80048; 80053; 81003; 81015; 82550; 82553; 82570; 82962; 83036; 83605; 84156; 84300; 84484; 85025; 87040; 87086; 87804; 93005; 93010; 93306-TC; 99285-25; G0378; J1644